=== PATIENT | female | born 1940 | race Two or more races ===

== ENCOUNTER 2018-04-18 11:19 | Inpatient (IN) | payer OTHER ==
[~2018-04-18] VITALS: Ht 152.4 cm; Wt 45.4 kg
[2018-05-02] MEDS ORDERED: SIMVASTATIN10 MG PO (13:55)
[2018-05-02] MEDS ORDERED: ZESTRIL5 MG PO (13:56)
[2018-05-02] MEDS ORDERED: ASPIR 8181 MG PO (13:56)
[2018-05-02] MEDS ORDERED: TEMAZEPAM7.5 MG PO (13:56)
[2018-05-02] MEDS ORDERED: LANSOPRAZOLE30 MG PO (13:57)
[2018-05-02] MEDS ORDERED: METHIMAZOLE5 MG PO (13:57)
[2018-05-11] MEDS ORDERED: INTESTINEX680 M1 PO (15:35)
[2018-05-11] MEDS ORDERED: ULTRACET PO (15:35)
[2018-05-11] MEDS ORDERED: OMEPRAZOLE20 MG PO (15:35)
== END 2018-05-11 17:18 | disposition home or self-care (01) | DRG 330 ==
LOC: SURH 05-02 14:45 → O/R 05-08 05:30 → SURH 05-08 10:22
PROVIDERS: ADMIT Surgery
PROC: 0DJD8ZZ Inspection of Lower Intestinal Tract, Via Natural or Artificial Opening Endoscopic (ICD-10-PCS; 2018-05-08)
PROC: 0DTN4ZZ Resection of Sigmoid Colon, Percutaneous Endoscopic Approach (ICD-10-PCS; principal; 2018-05-08 16:00)
DX: K57.32 Diverticulitis of large intestine without perforation or abscess without bleeding (principal); D62 Acute posthemorrhagic anemia; I11.9 Hypertensive heart disease without heart failure; E11.9 Type 2 diabetes mellitus without complications; E03.8 Other specified hypothyroidism; E78.00 Pure hypercholesterolemia, unspecified; K21.9 Gastro-esophageal reflux disease without esophagitis; Z86.73 Personal history of transient ischemic attack (TIA), and cerebral infarction without residual deficits